=== PATIENT | male | born 1990 | race American Indian/Alaskan Native ===

== ENCOUNTER 2018-07-11 20:02 | Inpatient (IN) | payer MEDICAID ==
--- NOTE | 2018-07-11 21:11 | C.PDOC ---
History Of Present Illness 28 y/o male presents to the ED for detox from alcohol. Last drink was 3 hours prior to arrival. He offers no physical complaints. Denies any other drug use. Patient also denies any psychiatric complaints such as SI or HI. Time Seen by Provider: 07/11/18 20:35 Chief Complaint (Nursing): Substance Abuse History Per: Patient History/Exam Limitations: no limitations Onset/Duration Of Symptoms: Days Current Symptoms Are (Timing): Still Present Past Medical History Reviewed: Historical Data, Nursing Documentation, Vital Signs Vital Signs: Last Vital Signs Temp 98.5 F 07/11/18 20:28 Pulse 98 H 07/11/18 20:28 Resp 16 07/11/18 20:28 BP 128/77 07/11/18 20:28 Pulse Ox 96 07/11/18 20:28 - Medical History Other PMH: Alcohol abuse Family History: States: Unknown Family Hx - Social History Hx Tobacco Use: No Hx Alcohol Use: Yes Hx Substance Use: No - Immunization History Hx Tetanus Toxoid Vaccination: No Hx Influenza Vaccination: No Hx Pneumococcal Vaccination: No Review Of Systems Except As Marked, All Systems Reviewed And Found Negative. Constitutional: Negative for: Fever, Chills Cardiovascular: Negative for: Chest Pain Respiratory: Negative for: Shortness of Breath Gastrointestinal: Negative for: Nausea, Vomiting Psych: Negative for: Suicidal ideation (or homicidal), Withdrawal Physical Exam - Physical Exam Appears: Non-toxic, No Acute Distress Skin: Warm, Dry Head: Atraumatic, Normacephalic Eye(s): bilateral: Normal Inspection, PERRL, EOMI Oral Mucosa: Moist Neck: Normal ROM Chest: Symmetrical Cardiovascular: Rhythm Regular, No Murmur Respiratory: Normal Breath Sounds, No Accessory Muscle Use Gastrointestinal/Abdominal: Soft, No Tenderness, No Distention Extremity: Bilateral: Atraumatic, Normal Color And Temperature Neurological/Psych: Oriented x3, Normal Speech ED Course And Treatment - Laboratory Results Result Diagrams: 07/11/18 21:25 07/11/18 21:25 O2 Sat by Pulse Oximetry: 96 (RA) Pulse Ox Interpretation: Normal Progress Note: Labs ordered for medical clearance. Labs reviewed,Elevated LFTs. Alcohol 470. K 3.1. Administered PO potassium chloride to replenish potassium. Pt was evaluated by dry cure worker Pati and accepted for admission by Dr Lauren after sobriety test. 2AM- Pt alert and awake, ambulatory with steady gait and normal speech- Pt is medically stable and clearws for admission. Disposition - Disposition Disposition: HOSPITALIZED Disposition Time: 02:20 Condition: STABLE - Clinical Impression Clinical Impression: Alcohol abuse - PA / ACCOUNTING SYSTEMS ANALYST / Resident Statement MD/DO has reviewed & agrees with the documentation as recorded. - Scribe Statement The provider has reviewed the documentation as recorded by the Scribcami Patel All medical record entries made by the Candieibcami were at my direction and personally dictated by me. I have reviewed the chart and agree that the record accurately reflects my personal performance of the history, physical exam, medical decision making, and the department course for this patient. I have also personally directed, reviewed, and agree with the discharge instructions and disposition.
[2018-07-11 21:28] LABS: BASO # 0.1 K/uL (0.0-0.2); EOS % 0.5 % (0.0-4.0); HEMOGLOBIN 13.5 g/dL (12.0-18.0); LYMPH # 1.5 K/uL (1.0-4.3); LYMPH % 42.5 % (20.0-40.0); MEAN CELL VOLUME 95.5 fL (80.0-94.0); MEAN CORPUSCULAR HGB CONC 33.5 g/dL (33.0-37.0); MEAN PLATELET VOLUME 9.3 fL (7.2-11.7); MONO # 0.4 K/uL (0.0-0.8); MONO % 10.4 % (0.0-10.0); NEUT # 1.5 K/uL (1.8-7.0); NEUT % 44.6 % (50.0-75.0); RBC 4.23 Mil/uL (4.40-5.90); RED CELL DISTRIBUTION WIDTH 14.6 % (11.5-14.5); WHITE BLOOD COUNT 3.5 K/uL (4.8-10.8)
[2018-07-11 21:40] LABS: ALB/GLOB RATIO 1.5 (1.0-2.1); ALBUMIN 4.7 g/dL (3.5-5.0); ALT/SGPT 342 U/L (21-72); BLOOD UREA NITROGEN 4 mg/dL (9-20); CALCIUM 9.6 mg/dl (8.6-10.4); GFR NON-AFRICAN AMERICAN > 60
[2018-07-11 21:44] LABS: URINE BILIRUBIN NEGATIVE (NEGATIVE); URINE BLOOD NEGATIVE (NEGATIVE); URINE CLARITY Clear (Clear); URINE COLOR Yellow (YELLOW); URINE GLUCOSE (UA) NORMAL (Normal); URINE LEUKOCYTE ESTERASE NEG Leu/uL (Negative); URINE PROTEIN NEGATIVE (NEGATIVE); URINE UROBILINOGEN NORMAL mg/dL (0.2-1.0)
[2018-07-11 21:52] LABS: AST/SGOT 771 U/L (17-59)
[2018-07-11 22:01] LABS: BARBITURATES, UR NEGATIVE (NEGATIVE); BENZODIAZEPINES, UR NEGATIVE (NEGATIVE); OPIATES, UR NEGATIVE (NEGATIVE); PHENCYCLIDINE, UR NEGATIVE (NEGATIVE)
[2018-07-11] MEDS ORDERED: Potassium Chloride 20 mEq ER Tab PO ONE (22:16)
--- NOTE | 2018-07-12 02:59 | PCM.BM ---
<Sintia Roberson - Last Filed: 07/12/18 02:57> Treatment Plan Problems - Problems identified on initial assessmt Problem 1 Date Initiated: 07/12/18 Time Initiated: 02:57 Assessment reference: NA Status: Active Priority: 1 Comment: Anxiety related to ETOH withdrawal Problem 2 Date Initiated: 07/12/18 Time Initiated: 02:58 Assessment reference: NA Status: Active Priority: 2 Comment: Ineffective coping Treatment assets and liabiliti Patient Assests: motivated, self-reliant, ADL independent Patient Liabilities: substance abuse - Milieu Protocol Maintain good personal hygiene: daily Encourage regular showers, daily Remind patient to perform daily oral care Conduct patient checks and document Observation sheet: Q15 minutes Maintain personal safety: every shift Educate patient to report safety concerns to staff, every shift Monitor environment for contraband/sharps Medication safety: Monitor for expected outcome, potential side effects: every shift, Assess barriers to learning: every shift, Assess readiness for medication education: every shift <Presley Lauren - Last Filed: 07/13/18 17:05> - Diagnosis (1) Alcohol use disorder, severe, dependence Status: Acute Interventions: 07/13/18 17:04 * Assess/adjust medications daily and /or as needed * See patient on an individual basis 7x/week to assess symptoms of depression * Monitor for side effects & effectiveness of medications <Prerna Acuna - Last Filed: 07/14/18 10:28> Family Contact Family involvement: Family/SO is involved Family contact name: GIRLFRIEND Family contacted how many times per week?: 2 - Goals for Treatment Patient goals for treatment: COMPLETE DETOX AND DISCUSS AFTERCARE OPTIONS WITH CLINICAL STAFF. Discharge/Continuing Care - Education Needs Education Needs: Patient Medication, Patient Diagnosis/Disease Process, Patient Coping Skills, Patient Anger Management skills, Patient Placement options, Patient Community resources - Discharge Discharge Criteria: No longer exhibiting s/s of withdrawal, Reduction of target symptoms Discharge to:: Other (AFTERCARE TBD. OF THIS WRITING, PT. IS UNSURE.) - Treatment Team Participation Discussed with Family/SO: No Was Patient/Family/SO present at Treatment Team Meeting: Yes
[2018-07-12] MEDS ORDERED: Potassium Chloride 10 mEq ER Tab PO SCH (08:00)
[2018-07-12] MEDS: Potassium Chloride 20 mEq ER Tab PO SCH (08:53)
[2018-07-12] MEDS: Multiple Vitamins Tab PO SCH (09:32)
--- NOTE | 2018-07-12 17:30 | PCM.PSYCH ---
Initial Psychiatric Evaluation - Initial Psychiatric Evaluation Type of Admission: Voluntary Legal Status: Capacity Chief Complaint (in patient's own words): I need help for my alcohol use History of Present Illness and Precipitating Events: Patient is a 28 years old, single, employed as a cook, -[place] male, with no previous psychiatric history, was admitted due to withdrawing from alcohol. Alcohol: Patient started drinking alcohol at 17 years of age, increased gradually and by the age of 19s he started drinking excessively. Currently he was drinking 1 pint of vodka daily. His last drink was yesterday, 1 pint and 2 shots. No previous history of any detox or rehabs. Patient is not attending AA meetings. Patient was [place], moved to [facility] in [facility] with parents. He has high school graduation. Working as a cook. Never and has no children. Patient lives with his parents. His height is 5 feet 10 inches and weight is 150 pounds. Current Medications: Active Medications Generic Name Dose Route Start Last Admin Trade Name Freq PRN Reason Stop Dose Admin Clonidine HCl 0.1 mg 07/12/18 10:19 Catapres PO Q4H PRN Symptoms of alcohol withdrawl Folic Acid 1 mg 07/12/18 10:00 07/12/18 09:33 Folic Acid PO 1 mg DAILY TIARA Administration Gabapentin 300 mg 07/12/18 10:30 07/12/18 11:06 Neurontin PO 300 mg BID TIARA Administration Lorazepam 1 mg 07/12/18 04:17 07/12/18 09:32 Ativan PO 1 mg Q4H PRN Administration Symptoms of alcohol withdrawl Lorazepam 2 mg 07/12/18 10:30 07/12/18 16:31 Ativan PO 07/17/18 10:29 2 mg Q4 TIARA Administration Taper Multivitamins 1 tab 07/12/18 10:00 07/12/18 09:32 Hexavitamin PO 1 tab DAILY TIARA Administration Potassium Chloride 20 meq 07/12/18 08:30 07/12/18 08:53 K-Dur 20 Meq Er Tab PO 20 meq BRK TIARA Administration Thiamine HCl 100 mg 07/12/18 10:00 07/12/18 09:32 Vitamin B1 Tab PO 100 mg DAILY TIARA Administration Trazodone HCl 50 mg 07/12/18 10:19 Desyrel PO HS PRN Insomnia Past Psychiatric History - Past Psychiatric History Previous Treatment History: None History of Abuse: None reported History of ETOH/Drug Use: See HPI History of Family Illness: None reported Pertinent Medical Hx (Current Medical&Sleep Prob, Allergies): Allergies Allergy/AdvReac Type Severity Reaction Status Date / Time No Known Allergies Allergy Verified 07/11/18 20:32 No Known Home Med 07/11/18 Review of Systems - Psychiatric Psychiatric: As Per HPI, Anhedonia, Anxiety Mental Status Examination - Personal Presentation Personal Presentation: Looks stated age - Affect Affect: Other (Appropriate) - Motor Activity Motor Activity: Calm - Reliability in Providing Information Reliability in Providing Information: Fair - Speech Speech: Organized - Mood Mood: Anxious - Formal Thought Process Formal Thought Process: No Impairment - Hallucinations/Delusions Hallucinations: Other (None reported) Delusions: Other - Obsessions/Compulsions Obsessions: None Compulsions: None - Cognitive Functions Orientation: Person, Place, Situation, Time Sensorium: Alert Attention/Concentration: Attentive Abstract Thinking: [place] Estimate of Intelligence: Average Judgement: Intact, as evidence by: Insight regarding need for hospitalization Memory: Recent intact, as evidence by: Ability to recall events of the day, Remote intact, as evidenced by: Ability to recall historical events - Risk Risk: Withdrawal, Diminished functioning - Strength & Assets Inventory Strength & Assets Inventory: Family support, Employment history, Cooperative - Limitations Limitations: Other (Lives with parents) DSM 5 DX - DSM 5 DSM 5 Diagnosis: Alcohol withdrawal Alcohol use disorder severe - Recommended/Plan of Treatment Treatment Recommendations and Plan of Treatment: Patient education. Supportive therapy. CBT for relapse prevention. [place] for abstinence We will start Ativan taper for alcohol withdrawal symptoms. Other as needed medications. Projected ELOS: 4-5 days Discharge Plan and Discharge Criteria: Minimal or no withdrawal symptoms - Smoking Cessation Smoking Cessation Initiated: No Reason for not providing: Patient does not smoke cigarettes.
[2018-07-13] MEDS: Multiple Vitamins Tab PO SCH (08:59)
[2018-07-13] MEDS: Potassium Chloride 20 mEq ER Tab PO SCH (08:59)
--- NOTE | 2018-07-13 17:08 | PCM.PYCHPN ---
Psychiatric Progress Note - Psychiatric Progress Note Patient seen today, length of contact: 15 minutes Patient Chief Complaint: I am feeling some weakness. Problems Identified/Issues Discussed: Patient seen, chart reviewed, case discussed with the staff. Issues related to illness and treatment were discussed with the patient and staff. Reported compliance with treatment with no adverse effect. Tolerating treatment very well. Patient reported feeling little better with some weakness, still has withdrawal symptoms including body aches, sweating, nausea, decreased sleep, weakness and headache. Mood reported as anxious. Affect appropriate. Aftercare discussed with the patient. Patient denied any delusions, auditory or visual hallucinations, no suicidal ideations or homicidal ideations at the time of the evaluation. Medical Problems: None reported Diagnostic Results: Reviewed Medication Change: No Medical Record Reviewed: Yes Mental Status Examination - Cognitive Function Orientation: Person, Place, Situation, Time Memory: Intact Attention: WNL Concentration: WNL Association: WN Fund of Knowledge: [facility] Decription of patient's judgement and insights: Fair - Mood Mood: Anxious - Affect Affect: Other (Appropriate) - Speech Speech: Appropriate - Formal Thought Process Formal Thought Process: No Impairment Psychotic Thoughts and Behaviors: None - Suicidal Ideation Suicidal Ideation: No - Homicidal Ideation Homicidal Ideation: No Goal/Treatment Plan - Goal/Treatment Plan Need for Continued Stay: Remain at risks for inpatient hospitalization, Discharge may exacerbated symptoms, Severe functional impairment Progress Toward Problem(s) and Goals/Treatment Plan: Patient education. Supportive therapy. CBT for relapse prevention. [place] for abstinence Continue treatment as before. Estimated Date of D/C: 07/15/18 - Smoking Cessation Smoking Cessation Initiated: No
[2018-07-14] MEDS: Potassium Chloride 20 mEq ER Tab PO SCH (08:21)
[2018-07-14 09:01] LABS: ALB/GLOB RATIO 1.4 (1.0-2.1); ALBUMIN 4.2 g/dL (3.5-5.0); ALT/SGPT 327 U/L (21-72); AST/SGOT 708 U/L (17-59); BILIRUBIN,DIRECT 0.9 mg/dL (0.0-0.4); BLOOD UREA NITROGEN 3 mg/dL (9-20); CALCIUM 9.4 mg/dl (8.6-10.4); GFR NON-AFRICAN AMERICAN > 60
[2018-07-14] MEDS: Multiple Vitamins Tab PO SCH (10:44)
--- NOTE | 2018-07-14 23:50 | PCM.PYCHPN ---
Psychiatric Progress Note - Psychiatric Progress Note Patient seen today, length of contact: 15 minutes Patient Chief Complaint: I am feeling better. Problems Identified/Issues Discussed: Patient seen, chart reviewed, case discussed with the staff. Issues related to illness and treatment were discussed with the patient and staff. Reported compliance with treatment with no adverse effect. Tolerating treatment very well. Patient reported feeling better, still has withdrawal symptoms including body aches, sweating, nausea, decreased sleep, weakness and headache. Mood reported as anxious. Affect appropriate. Aftercare discussed with the patient. Patient denied any delusions, auditory or visual hallucinations, no suicidal ideations or homicidal ideations at the time of the evaluation. Medical Problems: None reported Diagnostic Results: Reviewed DSM 5 Symptoms Update: Some improvement with treatment Medication Change: No Medical Record Reviewed: Yes Mental Status Examination - Cognitive Function Orientation: Person, Place, Situation, Time Memory: Intact Attention: WNL Concentration: WNL Association: [facility] Fund of Knowledge: [facility] Decription of patient's judgement and insights: Fair - Mood Mood: Anxious - Affect Affect: Other (Appropriate) - Speech Speech: Appropriate - Formal Thought Process Formal Thought Process: No Impairment Psychotic Thoughts and Behaviors: None - Suicidal Ideation Suicidal Ideation: No - Homicidal Ideation Homicidal Ideation: No Goal/Treatment Plan - Goal/Treatment Plan Need for Continued Stay: Remain at risks for inpatient hospitalization, Yola sorenson may exacerbated symptoms, Severe functional impairment Progress Toward Problem(s) and Goals/Treatment Plan: Patient education. Supportive therapy. CBT for relapse prevention. [place] for abstinence Continue treatment as before. Estimated Date of D/C: 07/15/18 - Smoking Cessation Smoking Cessation Initiated: No
[2018-07-15] MEDS: Potassium Chloride 20 mEq ER Tab PO SCH (07:53)
[2018-07-15] MEDS: Multiple Vitamins Tab PO SCH (09:27)
[2018-07-15 21:06] VITALS: O2SAT 99
--- NOTE | 2018-07-15 22:29 | PCM.PYCHPN ---
Psychiatric Progress Note - Psychiatric Progress Note Patient seen today, length of contact: 15 minutes Patient Chief Complaint: "I am still having some shakes and low appetite" Problems Identified/Issues Discussed: Patient was seen and chart was reviewed. Case was discussed with staff. Issued related to the illness and treatment were discussed with the patient, and issues related to illness and treatment were discussed with the patient and staff. Patient reported compliance with treatment and no adverse effects from the medications were reported. Patient is tolerating treatment well at this time. Patient denies any withdrawal symptoms such as body aches, sweating, nausea, decreased sleep or headaches at this time. Patient reports mood as better, with a slightly constricted but reactive affect. Aftercare was discussed with patient and he verbalized understanding. Patient denies any delusions, auditory/visual hallucinations, or perceptual disturbances. Patient also denies any suicidal or homicidal ideation/plan/intent at this time. Medication Change: No Medical Record Reviewed: Yes Mental Status Examination - Cognitive Function Orientation: Person, Place, Situation, Time Memory: Intact Attention: WNL Concentration: WNL Association: WNL Fund of Knowledge: Poor - Mood Mood: Anxious - Affect Affect: Other (Appropriate) - Speech Speech: Appropriate - Formal Thought Process Formal Thought Process: No Impairment - Suicidal Ideation Suicidal Ideation: No - Homicidal Ideation Homicidal Ideation: No Goal/Treatment Plan - Goal/Treatment Plan Need for Continued Stay: Remain at risks for inpatient hospitalization, Discharge may exacerbated symptoms, Severe functional impairment Progress Toward Problem(s) and Goals/Treatment Plan: All risks, benefits and alternatives of the meds discussed, and the pt agreed and understood. Attend groups and activities Supportive therapy and psychoeducation [place] for abstinence CBT for relapse prevention Encourage MAT Refer to rehab or IOP, and self-help groups Teach healthy lifestyle methods, i.e. diet, exercise, meditation Estimated Date of D/C: 07/16/18
[2018-07-16] MEDS: Multiple Vitamins Tab PO SCH (09:34)
[2018-07-16 09:50] VITALS: BP 129/79; PULSE 65; RESP 18; TEMP 98
--- NOTE | 2018-07-16 18:53 | PCM.PYCHDC ---
Mental Status Examination - Mental Status Examination Orientation: Person, Place, Situation, Time Memory: Intact Mood: Euphoric Affect: Broad Speech: Appropriate Attention: WNL Concentration: WNL Association: WNL Fund of Knowledge: WNL Formal Thought Process: No Impairment Suicidal Ideation: No Current Homicidal Ideation?: No Discharge Summary - Discharge Note Reason for Hospitalization: Alcohol withdrawals Alcohol use disorder, severe Consultations:: List each consultation separately and include: 1. Reason for request. 2. Findings. 3. Follow-up Summary of Hospital Course include:: 1. Description of specific treatment plan utilized for patients during their course of treatmen. 2. Summarize the time- course for resolution of acute symptoms and/or regressed behaviors. 3. Describe issues identified and worked on during hospitalization. 4. Describe medication utilized. 5. Describe medical problems identified and treated. 6. Reassessment of suicide risk Summary of Hospital Course: The patient was admitted and started on treatment with psychotherapy, support, psychoeducation and medications. All the risks and benefits of medications are discussed and the patient understood and agreed. CT and CBT used. The patient attended groups and activities, as well as milieu therapy. The patient improved with the treatments provided. After care discussed with the patient. - Diagnosis (1) Alcohol abuse Status: Chronic Priority: Medium (2) Alcohol use disorder, severe, dependence Status: Acute Priority: Medium - Final Diagnosis (DSM 5) Condition upon Discharge: STABLE Disposition: HOME/ ROUTINE
== END 2018-07-16 10:45 | disposition home or self-care (01) | DRG 772 ==
LOC: C.ER 20:02 → C.7D 07-12 02:28
PROC: HZ42ZZZ Group Counseling for Substance Abuse Treatment, Cognitive-Behavioral (ICD-10-PCS; principal; 2018-07-12)
PROC: HZ2ZZZZ Detoxification Services for Substance Abuse Treatment (ICD-10-PCS; 2018-07-12)
PROC: HZ52ZZZ Individual Psychotherapy for Substance Abuse Treatment, Cognitive-Behavioral (ICD-10-PCS; 2018-07-12)
PROC: HZ59ZZZ Individual Psychotherapy for Substance Abuse Treatment, Supportive (ICD-10-PCS; 2018-07-12)
PROC: HZ56ZZZ Individual Psychotherapy for Substance Abuse Treatment, Psychoeducation (ICD-10-PCS; 2018-07-12)
PROC: HZ46ZZZ Group Counseling for Substance Abuse Treatment, Psychoeducation (ICD-10-PCS; 2018-07-12)
PROC: GZHZZZZ Group Psychotherapy (ICD-10-PCS; 2018-07-12)
PROC: GZ58ZZZ Individual Psychotherapy, Cognitive-Behavioral (ICD-10-PCS; 2018-07-12)
PROC: GZ56ZZZ Individual Psychotherapy, Supportive (ICD-10-PCS; 2018-07-12)
DX: F10.230 Alcohol dependence with withdrawal, uncomplicated (principal); E87.6 Hypokalemia; R79.89 Other specified abnormal findings of blood chemistry; F41.9 Anxiety disorder, unspecified; Y90.8 Blood alcohol level of 240 mg/100 ml or more